=== PATIENT | female | born 2000 | race Two or more races ===

== ENCOUNTER → 2024-08-10 | Day surgery (SDC) | payer MEDICAID ==
[2024-08-05 10:09] LABS: Urine Bacteria None Seen /hpf (None Seen)
[2024-08-05 10:21] LABS: Basophils # (auto) 0 10 ^3/uL (0-0.2); Basophils % (auto) 1.1 % (0.0-2.0); Eosinophils # (auto) 0.1 10 ^3/uL (0-0.8); Eosinophils % (auto) 3.2 % (0.0-7.0); Hematocrit 41.8 % (36.0-46.0); Hemoglobin 14.3 g/dL (12.2-16.2); Lymphocytes # (auto) 1.9 10 ^3/uL (0.4-5.4); Lymphocytes % (auto) 42.1 % (10.0-50.0); Mean Corpuscular Hemoglobin 33.5 pg (28.0-32.0); Mean Corpuscular Hgb Conc. 34.1 g/dL (32.0-36.0); Mean Corpuscular Volume 98.3 fL (80.0-100.0); Monocytes # (auto) 0.4 10 ^3/uL (0-1.3); Monocytes % (auto) 9.1 % (0.0-12.0); Neutrophils % (auto) 44.5 % (37.0-80.0); Platelet Count (auto) 156 10^3/uL (140-450); Red Blood Cells 4.26 10^6/uL (4.0-5.20); Red Cell Distribution Width 13.8 % (11.8-14.3); White Blood Cell 4.4 10^3/uL (4.4-10.8)
[2024-08-05 10:40] LABS: INR 1.03 (0.9-1.15); Partial Thromboplastin Time 28.8 SEC (24.5-34.5); Prothrombin Time 10.9 sec (9.3-11.8)
[2024-08-05 10:48] LABS: Alanine Aminotransferase 16 U/L (7-40); Albumin 4.8 g/dL (3.2-4.8); Alkaline Phosphatase 80 U/L (46-116); Anion Gap 7 (5-15); Aspartate Aminotransferase 15 U/L (13-40); BUN/Creatinine Ratio 12.6 (10.0-20.0); Blood Urea Nitrogen 11 mg/dL (9-23); Calcium 9.8 mg/dL (8.7-10.4); Carbon Dioxide 26 mmol/L (20-31); Chloride 107 mmol/L (98-107); Glucose 92 mg/dL (74-106); Potassium 4.7 mmol/L (3.5-5.1); Sodium 140 mmol/L (136-145)
[2024-08-05 10:49] LABS: Bilirubin, Total 0.5 mg/dL (0.2-1.0); Total Protein 7.7 g/dL (5.7-8.2)
[2024-08-05 10:55] LABS: Urine Blood TRACE /uL (Negative); Urine Clarity Clear (Clear); Urine Color Light-Yellow (Yellow); Urine Protein, UAD Negative (Negative); Urine Specific Gravity 1.014 (1.001-1.035); Urine Urobilinogen Normal (Negative); Urine WBC 1 /hpf (0 - 5); Urine pH 6.5 (5.0-9.0)
[~2024-08-10] VITALS: Ht 167.6 cm; Wt 52.2 kg
[~2024-08-10] MED LIST: DexAMETHasone SOD PHOS 10MG/1ML VIAL INJ ONE; GLYCOPYRROLATE 0.2 MG/ML 1ML VIAL ONE; HYDROmorphone HCL 2 MG/ML VL/or syr IV PRN; KETOROLAC TROMETH 30 MG/ML 1ML VIAL ONE; LIDOCAINE 2% (LOCAL ANESTH.) PF 5ml SDV ONE; MEPERIDINE HCL (25 MG/ML) 1ML VIAL ONE; MIDAZOLAM HCL 2MG/2ML 2ml VIAL (1mg/ml) ONE; ONDANSETRON HCL 4 MG/2 ML VIAL IV ONE; ONDANSETRON HCL 4 MG/2 ML VIAL ONE; PROPOFOL 10 MG/ML 20 ML IV ONE; ceFAZolin 2 GM/D5W100ml 100 ML IV ONE; fentaNYL CITRATE 100 MCG/2 ML VL ONE
[2024-08-10] MEDS: BUPIVACAINE 0.5% MPF INJ 30ML SDV IJ ONE (10:14)
[2024-08-10 10:42] VITALS: PULSE 112; RESP 13; TEMP 98.8; O2SAT 100
[2024-08-10 11:45] VITALS: BP 120/78; PULSE 87; RESP 13; O2SAT 98
== END | disposition home or self-care (01) ==
LOC: SUR 07:35
PROVIDERS: ATTEND Podiatrist
DX: M20.42 Other hammer toe(s) (acquired), left foot (principal); K21.9 Gastro-esophageal reflux disease without esophagitis
CPT/HCPCS: 28285; 36415; 73620; 80053; 81001; 84702; 85025; 85610; 85730; J1100; J1885; J2003; J2175; J2250; J2405; J2704; J3010; J3490; L3260

== ENCOUNTER 2024-08-27 12:12 | Emergency (ER) | payer MEDICAID ==
[~2024-08-27] VITALS: Ht 167.6 cm; Wt 51.0 kg
[2024-08-27 13:02] VITALS: BP 119/69; PULSE 110; RESP 22; TEMP 97.4; O2SAT 97
[2024-08-27] MEDS: KETOROLAC TROMETH 60MG/2ML VIAL IM ONE (13:24)
== END 2024-08-27 13:41 | disposition home or self-care (01) ==
LOC: ER 12:12
DX: T81.89XD Other complications of procedures, not elsewhere classified, subsequent encounter (principal); M79.675 Pain in left toe(s); Z98.890 Other specified postprocedural states
CPT/HCPCS: 96372; 99283; J1885

== ENCOUNTER 2025-08-02 10:37 | Day surgery (SDC) | payer MEDICAID ==
[2025-07-28 11:06] LABS: Hematocrit 38.7 % (36.0-46.0); Hemoglobin 13.0 g/dL (12.2-16.2); Mean Corpuscular Hemoglobin 32.0 pg (28.0-32.0); Mean Corpuscular Volume 95.3 fL (80.0-100.0); Nucleated Red Blood Cells % 0.0 %
[2025-07-28 11:19] LABS: Urine Budding Yeast OCCASIONAL /hpf (None Seen); Urine Protein, UAD Negative (Negative)
[2025-07-28 11:27] LABS: INR 1.05 (0.9-1.15); Partial Thromboplastin Time 29.7 SEC (24.5-34.5); Prothrombin Time 11.1 sec (9.3-11.8)
[2025-07-28 11:48] LABS: Alanine Aminotransferase 16 U/L (7-40); Albumin 4.5 g/dL (3.2-4.8); Alkaline Phosphatase 64 U/L (46-116); Anion Gap 8 (5-15); BUN/Creatinine Ratio 14.0 (10.0-20.0); Blood Urea Nitrogen 13 mg/dL (9-23); Calcium 9.3 mg/dL (8.7-10.4); Carbon Dioxide 28 mmol/L (20-31); Chloride 105 mmol/L (98-107); Glucose 97 mg/dL (74-106); Potassium 4.8 mmol/L (3.5-5.1); Sodium 141 mmol/L (136-145); Total Protein 7.4 g/dL (5.7-8.2)
[2025-07-28 11:49] LABS: Bilirubin, Total 0.8 mg/dL (0.2-1.0)
[~2025-08-02] VITALS: Ht 167.6 cm; Wt 54.9 kg
[2025-08-02] MEDS ORDERED: PROPOFOL 10 MG/ML 100ML BOTTLE IV ONE (10:38)
[2025-08-02] MEDS ORDERED: KETOROLAC TROMETH 30 MG/ML 1ML VIAL IV ONE (11:45)
[2025-08-02] MEDS ORDERED: HYDROmorphone HCL 2 MG/ML VL/or syr IV PRN (11:45)
[2025-08-02] MEDS ORDERED: ONDANSETRON HCL 4 MG/2 ML VIAL IV PRN (11:45)
[2025-08-02] MEDS: ceFAZolin 1GM/50ML 100 ML IV ONE (11:49)
[2025-08-02] MEDS ORDERED: fentaNYL CITRATE 100 MCG/2 ML VL ONE (11:50)
[2025-08-02] MEDS ORDERED: METOCLOPRAMIDE HCL 5MG/ml INJ 2ml VIAL ONE (11:51)
[2025-08-02] MEDS ORDERED: ONDANSETRON HCL 4 MG/2 ML VIAL ONE (11:51)
[2025-08-02] MEDS ORDERED: MIDAZOLAM HCL 2MG/2ML 2ml VIAL (1mg/ml) ONE (11:51)
[2025-08-02] MEDS: LIDOCAINE 1% HCL (LOCAL ANESTH.) INJ 20ML MDV ONE (12:00)
[2025-08-02 12:15] VITALS: PULSE 100; RESP 12; TEMP 98.2
--- NOTE | 2025-08-02 12:27 | DVHOP2 ---
Operative Report - 2 Report Details Date: 08/02/25 Preop Diagnosis: 1. Left foot hammer toe 2. Left foot shortened digit 3. Left foot pain Postop Diagnosis: Same as preop Surgeon: Scott Cisneros MD Anesthesiologist: See anesthesia Anesthesia: Mac Implant: 6 2 K-wire, Cotton graft Consent: The patient was informed of the risks and benefits of the procedure. These include but are not limited to complications of anesthesia, postoperative infection, incomplete relief of symptoms, recurrence of symptoms, damage to blood vessels, nerves and tendons, deep venous thrombosis, pulmonary embolism and possible need for repeat surgery in the future. Complications: None Estimated Blood Loss: Minimal Fluids: See anesthesia Findings: Consistent with diagnosis Indications for Surgery: Worsening foot pain Name of Procedure Performed 1. Left foot second hammertoe repair (32256) 2. Left foot EDL lengthening (01030) 3. Left foot correction of angular deformity (15745) Procedure Details Procedure Details: PRE-PROCEDURE INFORMATION: In the pre-op holding area, the extremity to be operated on was clearly marked and the patient verified correct laterality of the marking. The patient was transferred to the OR table and placed in a supine position. A timeout was performed in which identification of the correct patient, procedure, location, and materials was done. The left foot and leg were prepped and draped in normal sterile fashion. The foot and leg were exsanguinated and the _ tourniquet was inflated to 250 mmHg. DESCRIPTION OF PROCEDURE: Attention was directed to the left 2nd toe where it was noted to be contraction and shortened. An incision was made over the dorsal PIPJ. Dissection was carried down to the level of the tendon using sharp and blunt dissection. Care was taken to avoid any neurovascular tendinous structures. A Z-lengthening was performed on the EHL, to allow for adequate lengthening of the toe. An osteotomy was performed at the neck of the proximal phalanx to allow for correction of the shortening and hammering. A 10 mm cotton wedge was then placed in between and a K-wire was placed through the graft and the digit. The capsule was then sewn in the digit was then sewn to allow for correction of the soft tissue deformity. The wound was then closed with 3-0 Mo nocryl and 4-0 nylon. All surgical wounds were irrigated copiously with saline and closed in layers with the aforementioned suture material. A dry sterile dressing was placed on the surgical extremity. The patient was placed in a postop shoe POSTOPERATIVE INFORMATION: The patient tolerated the above noted procedure and anesthesia well and was transferred to the PACU with vital signs stable, and vascular status intact with capillary refill intact to all digits. Postoperative instructions reviewed in detail with the patient with written instructions provided. Patient will return to clinic in approximately 10-14 days for first postoperative visit. Patient has the number of the clinic and was instructed to call prior to that time should any problems, questions, or concerns arise. Condition Good Disposition Home Visit Coding Podiatry Date of Service if different f: Aug 02, 2025 Billing Provider: SCOTT CISNEROS DPM Podiatry Common Visit Codes: PROCEDURE ONLY SCOTT CISNEROS DPM Aug 02, 2025 12:27
[2025-08-02 13:00] VITALS: BP 99/57; PULSE 79; RESP 14; O2SAT 96
== END 2025-08-02 13:26 | disposition home or self-care (01) ==
LOC: SUR 10:37
PROVIDERS: ATTEND Podiatrist
DX: M20.42 Other hammer toe(s) (acquired), left foot (principal); M62.472 Contracture of muscle, left ankle and foot; M79.672 Pain in left foot
CPT/HCPCS: 28225; 28285; 28313; 36415; 80053; 81001; 81025; 85025; 85610; 85730; C1713; J0690; J2003; J2250; J2405; J2704; J2765; J3010; L3260